=== PATIENT | male | born 1965 | race Two or more races ===

== ENCOUNTER 2023-01-26 03:47 | Inpatient (IN) | payer MEDICAID, OTHER ==
[~2023-01-26] VITALS: Ht 170.2 cm; Wt 108.6 kg
[2023-01-26] MEDS ORDERED: LORazepam 2MG/ML-1ML VIAL IV ONE ×3 (04:00→08:15)
[2023-01-26] MEDS ORDERED: SODIUM CHLORIDE 0.9% 1,000 ML IV ONE (04:00)
[2023-01-26 04:30] VITALS: PULSE 89; RESP 13; O2SAT 94
[2023-01-26 04:47] LABS: Alanine Aminotransferase 91 U/L (7-40); Albumin 4.9 g/dL (3.2-4.8); Alkaline Phosphatase 95 U/L (46-116); Anion Gap 16.6 (5-15); Aspartate Aminotransferase 217 U/L (13-40); BUN/Creatinine Ratio 11.8 (10.0-20.0); Blood Alcohol 76.7 mg/dL (<10); Blood Urea Nitrogen 9 mg/dL (9-23); Calcium 9.3 mg/dL (8.7-10.4); Carbon Dioxide 21.4 mmol/L (20-30); Chloride 104 mmol/L (98-107); Glucose 137 mg/dL (74-106); Potassium 3.4 mmol/L (3.5-5.1); Sodium 142 mmol/L (136-145)
[2023-01-26 04:48] LABS: Bilirubin, Total 2.2 mg/dL (0.2-1.0); Total Protein 7.9 g/dL (5.7-8.2)
[2023-01-26 05:02] LABS: Eosinophils # (auto) 0 10 ^3/uL (0-0.8); Eosinophils % (auto) 0.3 % (0.0-7.0); Lymphocytes # (auto) 1.2 10 ^3/uL (0.4-5.4); Monocytes # (auto) 0.4 10 ^3/uL (0-1.3); Nucleated Red Blood Cells % 0.4 %
[2023-01-26 05:03] LABS: Basophils # (auto) 0 10 ^3/uL (0-0.2); Hematocrit 44.6 % (41.0-53.0); Hemoglobin 15.4 g/dL (13.5-17.5); Lymphocytes % (auto) 25.8 % (10.0-50.0); Mean Corpuscular Hemoglobin 36.4 pg (28.0-32.0); Mean Corpuscular Hgb Conc. 34.6 g/dL (32.0-36.0); Mean Corpuscular Volume 105.1 fL (80.0-100.0); Monocytes % (auto) 8.6 % (0.0-12.0); Neutrophils # (auto) 3.1 10 ^3/uL (1.6-8.6); Neutrophils % (auto) 64.3 % (37.0-80.0); Red Blood Cells 4.24 10^6/uL (4.5-5.90); White Blood Cell 4.8 10^3/uL (4.4-10.8)
[2023-01-26 06:32] LABS: Platelet Estimate Decreased
[2023-01-26 06:33] LABS: Large Platelets FEW; Macrocytosis Slight
[2023-01-26] MEDS ORDERED: POTASSIUM CHL 20MEQ/100ML 100 ML IV ONE (06:45)
[2023-01-26] MEDS ORDERED: POTASSIUM EFFERVESENT TAB 25 MEQ PO ONE (07:45)
[2023-01-26] MEDS ORDERED: chlordiazePOXIDE HCL 25 MG CAP PO ONE (08:15)
[2023-01-26 08:35] VITALS: PULSE 114; RESP 32; O2SAT 95
[2023-01-26] MEDS: SODIUM CHLORIDE 0.9% 1,000 ML IV SCH ×3 (09:02→22:13)
[2023-01-26] MEDS ORDERED: NITROGLYCERIN 0.4 MG SL TAB SL PRN (09:30)
[2023-01-26] MEDS ORDERED: MORPHINE SULFATE INJ 2 MG/ml SYRG IV PRN (09:30)
[2023-01-26 10:37] LABS: Alanine Aminotransferase 81 U/L (7-40); Albumin 4.5 g/dL (3.2-4.8); Alkaline Phosphatase 79 U/L (46-116); Anion Gap 11.8 (5-15); Aspartate Aminotransferase 166 U/L (13-40); BUN/Creatinine Ratio 17.2 (10.0-20.0); Blood Urea Nitrogen 11 mg/dL (9-23); Calcium 8.5 mg/dL (8.5-10.1); Carbon Dioxide 25.2 mmol/L (20-30); Chloride 107 mmol/L (98-107); Glucose 123 mg/dL (74-106); Magnesium 1.3 mg/dL (1.6-2.6); Potassium 3.9 mmol/L (3.5-5.1); Sodium 144 mmol/L (136-145)
[2023-01-26] MEDS: FOLIC ACID 1 MG, MULTIPLE VITAMIN 10 ML, MAGNESIUM SULF SDV 50% 8 MEQ, THIAMINE INJ 100... INJ SCH ×10 (10:46→12:00)
[2023-01-26] MEDS: LORazepam 2MG/ML-1ML VIAL IV PRN ×3 (13:10→22:12)
[2023-01-26] MEDS: chlordiazePOXIDE HCL 25 MG CAP PO PRN (13:11)
[2023-01-26] MEDS ORDERED: MAGNESIUM SULFATE 1GM/100ML 100 ML IV ONE (22:00)
[2023-01-26] MEDS ORDERED: LORazepam 2MG/ML-1ML VIAL IV PRN (22:15)
[2023-01-26] MEDS: hydrALAZINE HCL 20 MG/ML VL IV PRN (22:51)
[2023-01-27] VITALS (8 sets, daily range): BP systolic 138–167; BP diastolic 91–123; PULSE 101–120; RESP 18–22; TEMP 98.3–99.7; O2SAT 94–97
[2023-01-27] MEDS: chlordiazePOXIDE HCL 25 MG CAP PO PRN ×3 (00:06→23:38)
[2023-01-27] MEDS: LORazepam 2MG/ML-1ML VIAL IV PRN ×2 (02:18→20:04)
[2023-01-27 04:10] LABS: Urine WBC None Seen /hpf (0 - 3)
[2023-01-27 04:29] LABS: Amphetamine Screen, Urine Neg (NEGATIVE); Barbiturate Scree,Urine Neg (NEGATIVE); Cannabinoid Screen, Urine Neg (NEGATIVE); Opiate Scree,Urine Neg (NEGATIVE); Phencyclidine Screen, Urine Neg (NEGATIVE)
[2023-01-27 04:33] LABS: Urine Bacteria NONE SEEN /hpf (None Seen); Urine Blood Negative /uL (Negative); Urine Clarity Clear (Clear); Urine Color Yellow (Yellow); Urine Protein, UAD Negative (Negative); Urine Specific Gravity 1.014 (1.001-1.035); Urine pH 7.5 (5.0-8.0)
[2023-01-27 04:37] LABS: Cocaine Screen, Urine Neg (NEGATIVE)
[2023-01-27 04:38] LABS: Benzodiazephine Screen, Urine Pos (NEGATIVE)
[2023-01-27] MEDS: SODIUM CHLORIDE 0.9% 1,000 ML IV SCH ×3 (04:48→18:05)
[2023-01-27] MEDS ORDERED: ENOXAPARIN SOD 40 MG/0.4 ML SYRINGE SC SCH (10:00)
[2023-01-27] MEDS: PANTOPRAZOLE 40 MG/10 ML VIAL INJ IV SCH (10:04)
[2023-01-27] MEDS: LISINOPRIL 10 MG TAB PO SCH (10:05)
[2023-01-27] MEDS: amLODIPine BESYLATE 5 MG TAB PO SCH (10:05)
[2023-01-27 10:22] LABS: Eosinophils # (auto) 0.1 10 ^3/uL (0-0.8); Hematocrit 45.1 % (41.0-53.0); Lymphocytes # (auto) 1.5 10 ^3/uL (0.4-5.4); Mean Corpuscular Hgb Conc. 34.7 g/dL (32.0-36.0); Monocytes # (auto) 0.6 10 ^3/uL (0-1.3); Neutrophils # (auto) 3.8 10 ^3/uL (1.6-8.6); White Blood Cell 6.2 10^3/uL (4.4-10.8)
[2023-01-27 10:26] LABS: Basophils # (auto) 0 10 ^3/uL (0-0.2); Basophils % (auto) 0.8 % (0.0-2.0); Eosinophils % (auto) 2.2 % (0.0-7.0); Hemoglobin 15.7 g/dL (13.5-17.5); Lymphocytes % (auto) 25.1 % (10.0-50.0); Mean Corpuscular Hemoglobin 36.4 pg (28.0-32.0); Mean Corpuscular Volume 104.9 fL (80.0-100.0); Neutrophils % (auto) 61.9 % (37.0-80.0); Nucleated Red Blood Cells % 0.2 %; Red Cell Distribution Width 13.9 % (11.8-14.3)
[2023-01-27 10:43] LABS: INR 1.18 (0.9-1.15); Partial Thromboplastin Time 28.6 SEC (24.5-34.5); Prothrombin Time 12.3 sec (9.3-11.8)
[2023-01-27 10:54] LABS: Alanine Aminotransferase 63 U/L (7-40); Alkaline Phosphatase 79 U/L (46-116); Anion Gap 11.6 (5-15); BUN/Creatinine Ratio 13.6 (10.0-20.0); Blood Urea Nitrogen 11 mg/dL (9-23); Calcium 8.9 mg/dL (8.5-10.1); Carbon Dioxide 22.4 mmol/L (20-30); Chloride 103 mmol/L (98-107); Glucose 90 mg/dL (74-106); Magnesium 1.6 mg/dL (1.6-2.6); Potassium 3.4 mmol/L (3.5-5.1); Sodium 137 mmol/L (136-145)
[2023-01-27 10:55] LABS: Albumin 4.5 g/dL (3.2-4.8); Aspartate Aminotransferase 123 U/L (13-40); Bilirubin, Total 4.7 mg/dL (0.2-1.0)
[2023-01-27 10:56] LABS: Total Protein 7.3 g/dL (5.7-8.2)
[2023-01-27 11:07] LABS: Platelet Estimate Adequate
[2023-01-27 11:08] LABS: Large Platelets FEW
[2023-01-27] MEDS: FOLIC ACID 1 MG, MULTIPLE VITAMIN 10 ML, MAGNESIUM SULF SDV 50% 8 MEQ, THIAMINE INJ 100... INJ SCH ×5 (12:55)
[2023-01-27] MEDS: hydrALAZINE HCL 20 MG/ML VL IV PRN (14:55)
[2023-01-28] VITALS (7 sets, daily range): BP systolic 111–145; BP diastolic 72–92; PULSE 65–112; RESP 18–24; TEMP 97.6–98.9; O2SAT 95–99
[2023-01-28] MEDS: SODIUM CHLORIDE 0.9% 1,000 ML IV SCH ×4 (01:13→22:29)
[2023-01-28] MEDS: LORazepam 2MG/ML-1ML VIAL IV PRN (02:09)
[2023-01-28] MEDS: LISINOPRIL 10 MG TAB PO SCH (09:02)
[2023-01-28] MEDS: PANTOPRAZOLE 40 MG/10 ML VIAL INJ IV SCH (09:02)
[2023-01-28] MEDS: amLODIPine BESYLATE 5 MG TAB PO SCH (09:02)
[2023-01-28] MEDS: FOLIC ACID 1 MG, MULTIPLE VITAMIN 10 ML, MAGNESIUM SULF SDV 50% 8 MEQ, THIAMINE INJ 100... INJ SCH ×5 (13:22)
[2023-01-28] MEDS ORDERED: HYDROcodone-ACET 5/325MG TAB PO PRN (21:45)
[2023-01-28] MEDS ORDERED: ACETAMINOPHEN 325 MG TAB PO PRN (21:45)
[2023-01-29] MEDS: SODIUM CHLORIDE 0.9% 1,000 ML IV SCH ×2 (03:40→10:20)
[2023-01-29 05:00] VITALS: BP 132/70; PULSE 69; RESP 20; TEMP 98.1; O2SAT 98
[2023-01-29 07:32] VITALS: PULSE 94
[2023-01-29] MEDS ORDERED: CHL25C PO ×3 (07:44→15:43)
[2023-01-29] MEDS ORDERED: ALPR0.5T PO ×3 (07:44→15:43)
[2023-01-29 08:30] VITALS: BP 153/86; PULSE 87; RESP 16; TEMP 98.1; O2SAT 100
[2023-01-29 09:01] VITALS: BP 153/86; PULSE 87; RESP 16; TEMP 98.1; O2SAT 100
[2023-01-29 09:39] LABS: Hepatitis B Surface Antibody Positive (Negative)
[2023-01-29] MEDS: amLODIPine BESYLATE 5 MG TAB PO SCH (09:47)
[2023-01-29] MEDS: PANTOPRAZOLE 40 MG/10 ML VIAL INJ IV SCH (09:48)
[2023-01-29] MEDS: LISINOPRIL 10 MG TAB PO SCH (09:48)
[2023-01-29] MEDS: LORazepam 2MG/ML-1ML VIAL IV PRN (09:56)
[2023-01-29 09:58] LABS: Hepatitis C Antibody Negative (Negative)
== END 2023-01-29 16:04 | disposition home or self-care (01) | DRG 775 ==
LOC: ER 03:47 → EDBD 03:47 → TELE 09:32 → TELE-CENTR 23:40
PROVIDERS: ADMIT Nurse Practitioner Family; ATTEND Internal Medicine
DX: F10.139 Alcohol abuse with withdrawal, unspecified (principal); E66.9 Obesity, unspecified; I10 Essential (primary) hypertension; E87.6 Hypokalemia; F32.9 Major depressive disorder, single episode, unspecified; F41.9 Anxiety disorder, unspecified; Z82.49 Family history of ischemic heart disease and other diseases of the circulatory system; Z68.37 Body mass index [BMI] 37.0-37.9, adult; Z71.41 Alcohol abuse counseling and surveillance of alcoholic
CPT/HCPCS: 36415; 71045; 76705; 80053; 80307; 80320; 81001; 82140; 83690; 83735; 84484; 85025; 85610; 85730; 86706; 86803; 93005; 96361; 96374; 96376; 99291; C9113; G0378